=== PATIENT | female | born 1960 ===

== ENCOUNTER 2019-01-25 05:00 | Day surgery (SDC) | payer OTHER ==
[~2019-01-25 05:00] MED LIST: BP MEDICATION; LEVOTHYROXINE25 MCG PO; XELJANZ XR11 MG PO
[2019-01-25] MEDS ORDERED: DUI500 PO (10:49)
[2019-01-25] MEDS ORDERED: TRAM1TAB98 PO (10:49)
== END 2019-01-25 12:35 | disposition home health service (06) ==
LOC: CIR.AMB 05:00
DX: M65.341 Trigger finger, right ring finger (principal)